=== PATIENT | male | born 1945 | race Caucasian/White ===

== ENCOUNTER 2016-07-06 16:43 | Emergency (ER) | payer OTHER ==
[2016-07-06] MEDS ORDERED: LACTATED RINGERS 1,000 ML IV ONE ×2 (16:49→17:19)
[2016-07-06] MEDS ORDERED: 0.9 % SODIUM CHLORIDE 1,000 ML IV ONE ×3 (16:49→17:33)
[2016-07-06] MEDS ORDERED: ONDANSETRON HCL/PF 4 MG/ 2ML VIAL ONE (16:58)
--- NOTE | 2016-07-06 17:17 | ED Physician Documentation ---
General Adult - HISTORIAN Historian: patient, paramedics, child (son) - HPI Stated Complaint: Severe Diarrhea Chief Complaint: General Adult Additional Information: Ten days of nausea, vomiting, diarrhea. Son saw him 07/03 and says he was fine. Found him today, cold, sitting in chair, diarrheal stool everywhere. Pt says he has had diarrhea x5 today with small amounts of urine each time. Denies hear HX. Smoker, heavy ETOH. - ROS CONST: other (cold) - PAST HX Past History: COPD, hypertension (HLD). denies: A-Fib (denies) Allergies/Adverse Reactions: Allergies Allergy/AdvReac Type Severity Reaction Status Date / Time No Known Drug Allergies Allergy Verified 07/06/16 17:28 Home Medications: Ambulatory Orders Medication Instructions Recorded Aspir 81 81 mg PO DAILY u2 11/08/12 Lisinopril [Prinivil] 10 mg PO DAILY 07/06/16 Pravastatin Sodium [Pravastatin 40 mg PO DAILY 07/06/16 Sodium] - SOCIAL HX Smoking History: cigarettes (1 1/2 PPD x 60 years, now says 1/2 PPD) Alcohol Use: heavy (6-8 beers/day) Drug Use: none (denies) - FAMILY HX Family History: No - VITAL SIGNS Vital Signs: Vital Signs Temp Pulse Resp BP Pulse Ox 162 H 40 H 77/52 82 L 07/06/16 16:59 07/06/16 16:45 07/06/16 16:45 07/06/16 16:59 - REVIEWED ASSESSMENTS Nursing Assessment Reviewed: Yes Vitals Reviewed: Yes Progress - Progress Progress: Portable chest History: Dehydration Findings: The lungs are clear. Heart size and pulmonary vascularity are normal. Aortic atherosclerosis is observed. Impression: Atherosclerotic aorta. Electronically signed on Jul 06, 2016 5:27:22 PM PST SUPERVISOR by: Cale Kirkland 1839, spoke with Ricardo Cosby at [facility] Pt now has measurable rectal temp of 99.3. Now talks at (faster) normal rate, appropriate, pleasant, pink. 1854, Accepted for admit to [place] ICU per Dr. Nation. 1908, 35 mg cardizem over 4 minutes, with rate decrease from 150's to 112. Will scart drip. Remains alert, appropriate. BP monitor says 66/46. 1919, BP 76/46. Care to Dr. Crane while awaiting transfer. ED Results Lab/Radiology - Orders Orders: ED Orders Category Date Time Status Continuous EKG monitoring Q1H Care 07/06/16 16:59 Active Continuous Pulse Oximetry Q1H Care 07/06/16 16:[address] Saline Lock/IV Now Care 07/06/16 16:59 Completed CHEST 1 VIEW [RAD] Stat Exams 07/06/16 Ordered CBC/PLATELET/DIFF Routine Lab 07/06/16 16:55 Received CMP Routine Lab 07/06/16 16:55 Received ETHANOL MEDICAL USE ONLY Stat Lab 07/06/16 Ordered LACTIC ACID Stat Lab 07/06/16 Ordered UDS [DRUG SCREEN URINE MEDICAL ONLY] Routine Lab 07/06/16 Ordered URINALYSIS Routine Lab 07/06/16 Ordered 0.9 % Sodium Chloride [Normal Saline] 1,000 ml Med 07/06/16 16:49 Discontinued IV .STK-MED Lactated Ringers [Ringers, Lactated] 1,000 ml Med 07/06/16 16:49 Discontinued IV .STK-MED Ondansetron HCl/Pf [Zofran 4 mg/2 ml] Med 07/06/16 16:58 Discontinued 4 mg .ROUTE .STK-MED ONE Oxygen Daily Oxygen 07/06/16 17:15 Ordered EKG WITH COMPARISON Stat Ther 07/06/16 Ordered General Adult Physical Exam - PHYSICAL EXAM GENERAL APPEARANCE: severe distress (cyanotic, cold to touch. alert and talking , answering appropriately) EENT: eye inspection normal, dry mucous membranes (extreme) NECK: normal inspection, supple RESPIRATORY: breath sounds normal (decreased throughout) CVS: tachycardia (155-170) ABDOMEN: soft, normal bowel sounds RECTAL: deferred SKIN: cyanosis (throughout. No cap refill.) EXTREMITIES: no evidence of injury, no edema NEURO: CN's nml as tested, motor nml, sensation nml, cognition normal Discharge Clincal Impression: Dehydration, Nausea, vomiting and diarrhea, Atrial fibrillation with rapid ventricular response Home Medications: Ambulatory Orders Aspir 81 81 mg PO DAILY u2 11/08/12 Lisinopril [Prinivil] 10 mg PO DAILY 07/06/16 Pravastatin Sodium [Pravastatin Sodium] 40 mg PO DAILY 07/06/16 Condition: Fair Disposition: 02 XFER SHT-TRM HOSP Decision to Admit: NO Decision Time: 18:55
[2016-07-06] MEDS ORDERED: ONDANSETRON HCL/PF 4 MG/ 2ML VIAL IVP ONE (17:19)
[2016-07-06 17:28] LABS: MEAN CORPUSCULAR HEMOGLOBIN 31.6 pg (28.0-34.0)
--- NOTE | 2016-07-06 18:19 | Diagnostic Imaging Report ---
[facility] [address] [facility].[address] [id number] Report Submission Date: Jul 06, 2016 5:27:22 PM DSP ENGINEER Patient Study Name: EDWARD STARR Date: Jul 06, 2016 5:08:09 PM DSP ENGINEER Modality Type: CR Gender: M Description: CHEST : 41 Institution: [facility] Physician: CA BYRNES - ER Portable chest History: Dehydration Findings: The lungs are clear. Heart size and pulmonary vascularity are normal. Aortic atherosclerosis is observed. Impression: Atherosclerotic aorta. Electronically signed on Jul 06, 2016 5:27:22 PM DSP ENGINEER by: Cale BYERS
[2016-07-06] MEDS ORDERED: DILTIAZEM HCL 25 MG/ 5ML VIAL IVP ONE (19:02)
[2016-07-06] MEDS ORDERED: DILTIAZEM HCL 125 MG in 0.9 % SODIUM CHLORIDE 100 ML IV ONE (19:15)
[2016-07-06 21:40] VITALS: BP 76/48
[2016-07-07 05:57] LABS: ABG BASE EXCESS -12.8 (-2 - +2); ABG PH 7.32 (7.35-7.45)
[2016-07-07 08:48] LABS: MONOCYTES % 5 % (0-11); SEGMENTED NEUTROPHILS % 86 % (39-79); TOXIC GRANULATION PRESENT; TOXIC VACUOLATION PRESENT
== END 2016-07-06 19:40 | disposition short-term general hospital (02) ==
LOC: ED 16:43
DX: R19.7 Diarrhea, unspecified (principal)
CPT/HCPCS: 71010; 80053; 83605; 85025; 85610; G0480; J2405; J3490; J7030; J7120; 36600; 80320; 82803; 99283; S1016